=== PATIENT | female | born 1960 | race Caucasian/White ===

== ENCOUNTER 2023-03-05 10:29 | Observation (INO) | payer OTHER ==
[~2023-03-05] VITALS: Ht 165.1 cm; Wt 72.6 kg
[~2023-03-05 10:29] MED LIST: HYDR1TAB94 PO; ONDA4ODT SL
[2023-03-05 12:02] LABS: Hematocrit 48.6 % (33.0-51.0); Hemoglobin 16.2 g/dL (11.5-16.0); Mean Corpuscular HGB 27.8 pg (26.0-34.0); Mean Corpuscular HGB Conc 33.3 g/dL (31.5-36.5); Mean Corpuscular Volume 83 fL (80-100); Mean Platelet Volume 9.9 fL (9.1-12.4); Platelet Count 172 K/mm3 (150-400); RDW Coefficient Variation 18.6 % (11.7-14.2); RDW Standard Deviation 52.3 fL (35.1-46.3); Red Blood Cell Count 5.83 M/mm3 (3.80-5.20); White Blood Cell Count 12.49 K/mm3 (4.00-11.30)
[2023-03-05 12:15] LABS: Influenza A, PCR NEGATIVE (NEGATIVE); Influenza B, PCR NEGATIVE (NEGATIVE); Resp Syncytial Virus, PCR NEGATIVE (NEGATIVE); SARS-Cov-2 (COVID-19) PCR, MMC NEGATIVE (NEGATIVE)
[2023-03-05 12:30] LABS: International Normalized Ratio 1.78; Prothrombin Time Results 18.1 Sec (9.7-11.5)
[2023-03-05 12:37] LABS: Alanine Aminotransfer (ALT/SGP 32 U/L (12-78); Albumin, Blood 1.8 g/dL (3.4-5.0); Albumin/Globulin Ratio 0.3 (0.8-1.8); Alk Phos 918 U/L (50-136); Anion Gap 6 mmol/L (6-16); Aspartate Aminotrans (AST/SGOT 600 U/L (12-37); Bilirubin, Total 23.2 mg/dL (0.1-1.0); Blood Urea Nitrogen 17 mg/dL (8-24); Bun/Creatinine Ratio 27.5 (12.0-20.0); CO2, Blood 28 mmol/L (21-32); Calcium, Blood 8.6 mg/dL (8.5-10.1); Chloride, Blood 92 mmol/L (98-108); Creatinine, Blood 0.62 mg/dL (0.40-1.00); Ethanol (Alcohol), Blood, Med <3 mg/dL; Globulin, Blood 5.6 g/dL (2.2-4.0); Glomerular Filtration Rate 102 (60-); Glucose, Blood 89 mg/dL (70-99); Magnesium, Blood 2.6 mg/dL (1.6-2.4); Potassium, Blood 3.7 mmol/L (3.5-5.5); Sodium, Blood 126 mmol/L (136-145); Total Protein, Blood 7.4 g/dL (6.4-8.2)
[2023-03-05 12:52] LABS: BAND PERCENT MAN 2 % (0-8); BASOPHILS PERCENT MAN 0 % (0-2); EOSINOPHILS ABSOLUTE MAN 0.12 K/mm3 (0.00-0.68); EOSINOPHILS PERCENT MAN 1 % (0-6); LYMPHOCYTES ABSOLUTE MAN 0.87 K/mm3 (0.84-5.20); LYMPHOCYTES PERCENT MAN 7 % (21-46); MONOCYTES ABSOLUTE MAN 0.87 K/mm3 (0.16-1.47); MONOCYTES PERCENT MAN 7 % (4-13); MYELOCYTE ABSOLUTE MAN 0.12 K/mm3 (0.00-0.00); MYELOCYTE PERCENT MAN 1 % (0-0); NEUTROPHILS ABSOLUTE MAN 10.49 K/mm3 (1.96-9.15); SEG NEUTROPHILS PERCENT MAN 82 % (41-73); TOTAL CELLS COUNTED 100
[2023-03-05 13:33] LABS: Base Excess Venous 0.5 mmol/L; Bicarbonate Venous 24.6 mmol/L (24.0-30.0); PCO2 Venous 43.8 mmHg (38-42); pH Blood Venous 7.38 (7.34-7.37)
[2023-03-05 15:30] VITALS: BP 99/68
[2023-03-05 15:42] LABS: Source, Urine Clean Catch
[2023-03-05 15:49] LABS: Appearance, Urine Cloudy (Clear); Blood, Urine 1+ (Neg); Color, Urine Amber (P-Yellow); Glucose Qualitative, Urine Neg (Neg); Ketones, Urine Neg (Neg); Leukocyte Esterase, Urine 1+ (Neg); Nitrite, Urine Pos (Neg); Protein, Urine 2+ (Neg); Specific Gravity, Urine 1.015 (1.003-1.022); Urobilinogen, Urine 3+ (Normal)
[2023-03-05 15:57] LABS: Bilirubin, Urine 3+ (Neg)
[2023-03-05 15:58] LABS: Bacteria Many /hpf; Squamous Epithelial Cells Few /hpf (Few)
--- NOTE | 2023-03-05 16:30 | NUR ---
Met with pt and daughters Kesha and Venecia at bedside. The patient and daughters v/u regarding pt cancer diagnosis and metastasis. They are electing comfort care at this time, and both daughters state they only want their mom to be comfortable. We discussed the living situation, in which the patient is renting a room at a friends in [place]. Her daughter Venecia has been staying with her day and night for just over a month due to pt's increased general weakness and pain. Planning for home with hospice tomorrow.
--- NOTE | 2023-03-06 05:08 | NUR ---
SHIFT SUMMARY KERRY WAS ADMITTED FROM THE ED AT 2054. SHE WAS DROWSY AND ORIENTED TO SELF AND PERSON. PT ORIENTED TO ROOM AND ADMIT COMPLETED. KERRY IS NOW A COMFORT CARE PT D/T METASTATIC CA. PT VISITED BY DAUGHTER. PT HAD SOME ANXIETY UPON ARRIVAL WHICH CALMED DOWN SHORTLY AFTER. PT DENIED PAIN INITIALLY, BUT UPON REASSESSMENT REQUIRED PAIN MEDS LATER IN THE NIGHT. PT SKIN IS JAUNDICED, AND URINE IS DARK ORANGE. PT RETAINED UP TO 500ML OF URINE, AND WAS UNABLE TO VOID UNTIL WE SAT HER ON BEDSIDE COMMODE AND SHE WAS ABLE TO GO. PT RESTING IN BED AT THIS TIME WITH BED ALARM IN PLACE.
--- NOTE | 2023-03-06 19:00 | NUR ---
SHIFT SUMMARY PT RESPONDS TO PAIN AND VERBAL STIMULI ONLY, NOT ABLE TO COMMUNICATE NEEDS. PT ON 4L 02, NOT TOLERATING PO, INCONTINENT, AND PAIN MANAGED PER EMAR. PLAN FOR DISCHARGE HOME ON HOSPICE. CALL LIGHT WITHIN REACH AND DAUGHTER AT BEDSIDE T/O SHIFT.
--- NOTE | 2023-03-07 04:21 | NUR ---
SHIFT SUMMARY. MS MOREIRA HAS BEEN NON VERBAL THIS SHIFT. SHE OPENS HER EYES SOMETIMES TO VERBAL STIMULI OR TO PAINFUL STIMULI. HER DAUGHTER CHAD IS WITH HER NOW AND SHE SAID THAT SHE HAS SEEN MORE RESPONSIVENESS. LUNGS SOUND MOIST. ATROPINE GIVEN THEN SCOPOLOMINE PATCH APPLIED, AFTER WHICH ORAL SECRETIONS DECREASED. ORAL CARE AND SUCTIONING DONE. MS MOREIRA HAS NOT APPEARED AT ALL UNCOMFORTABLE, HAS NOT FLICHED WHEN SHE WAS TURNED/REPOSITIONED. SHE REMAINS ON OXYGEN NASAL CANULA FOR COMFORT. NO URINE OUTPUT. EDEMA TO ALL EXTREMITIES. BED LOW. CALL LIGHT IN REACH.
--- NOTE | 2023-03-07 08:00 | NUR ---
pt daughter in room, giving her drops of water, spoke with her about using a sponge instead so she doesn't asperate, wasn't real receptive, pt laying in bed with eyes closed, resp even and mildly labored, breath sounds are wet and course t/o, on r/a, responds with a slight moan at her name, incont of bowel/bladder, briefs in place, skin is jaundiced, abd round soft, not moving herself at all, call light in reach.
--- NOTE | 2023-03-07 09:43 | NUR ---
Comfort care visit Made a visit to pt's room this morning. One of her daughters is in the bathroom in pt's room. Pt moans when her name is called and her arm is touched. No opening of eyes or other reaction. She appears comfortable. Pt is jaundiced. There is a dog resting in the chair next to pt's bed. Chart reviewed. Spoke with refund clerk and changed Venecia Erickson's phone number in the system to the correct phone number. Venecia's number is [phone]. PC to continue to follow prn.
--- NOTE | 2023-03-07 12:55 | NUR ---
pt breaths became very shallow and periods of apnea noted, went to get pallative care as she looked imminent, when arrived back to room a few minutes later with pallative care no resp or hr detected. pallative care nurse called family, Dr. Valenzuela and charge nurse notified. pt lines were removed and cleaned up. waiting for daughter from out of town to come in.
--- NOTE | 2023-03-07 13:10 | NUR ---
Bedside RN came to PC to ask if PC nurse would go check in on pt. Nursing reports that she believes pt is imminent, having periods of apnea. Went with nursing to pt's room. Entered room and found pt pulseless and not breathing. Bedside RN confirmed no RR and no heart tones at 1255. No family at bedside. 1259: Attempted to call dtr Venecia. No answer to her number only heard no voice mail box set up for this number. 1300: Called dtr Kesha and spoke with her. Notified her that her mother had passes. Kesha molina and another family member Keith came on the phone. Kesha returned to the phone and stated that she lives about 1 hour and 15 min away and will be coming to say goodbye to her mother. Kesha states she has someone who will drive her here. Kesha states she will call her sister's boyfriend's phone to see if she can get ahold of Venecia. This editorial writer will also attempt to call Venecia again. 1305: Called Venecia's phone a second time and she answered. Notified her of her mom's . Venecia states that she knew her mother's time of was nearing and that is why she left the room. She states "I couldn't watch that." Emotional support provided. Venecia states she already said her goodbye and wouldn't be returning to the hospital. Venecia stated she would call her sister Kesha and they would discuss a mortuary choice. 1309: Updated medical floor insulation cupola charger and bedside nurse that dtr Kesha will be coming to say goodbye. Mortuary choice is yet to be decided. This RN is available to come speak with family when they arrive if they would like alexa additional support. PC to remain available.
--- NOTE | 2023-03-07 20:11 | NUR ---
FAMILY ARE 20 MINUTES AWAY FROM THE HOSPITAL, PER PHONE CALL.
--- NOTE | 2023-03-07 20:58 | NUR ---
LEFT A MESSAGE WITH NANCY STOCK TAKER. STATED THAT WE WOULD CALL A HOME TO COME LPN OR MEDICAL ASSISTANT THEIR LOVED ONE AND THE HOME WOULD GET IN TOUCH WITH THEM. CALL BACK NUMBER FOR MED FLOOR WAS GIVEN.
--- NOTE | 2023-03-07 22:33 | NUR ---
FINAL DISCHARGE APRIL FARIBA TRANSFERED BODY TO [facility] AT 2233HRS AFTER FAMILY HAD BEEN PRESENT.
== END 2023-03-07 12:55 ==
LOC: ER 10:29 → MEDS 10:30
PROVIDERS: Emergency Medicine; ADMIT Student in an Organized Health Care Education/Training Program
DX: C22.0 Liver cell carcinoma (principal); A41.9 Sepsis, unspecified organism; Z66 Do not resuscitate; Z51.5 Encounter for palliative care; J44.9 Chronic obstructive pulmonary disease, unspecified
CPT/HCPCS: 0241U; 36415; 71045; 80053; 81001; 82140; 82803; 83605; 83690; 83735; 83880; 85025; 85610; 86850; 86900; 86901; 87040; 87077; 87086; 87186; 93005; 93010; 96361; 96365; 96366; 96375; 96376; 99285-25; A9270; G0378; J1170; J1956; J2060; J2270; J2405; J7030